=== PATIENT | male | born 1975 | race Caucasian/White ===

== ENCOUNTER 2023-01-10 13:33 | Inpatient (IN) ==
[2023-01-10] MEDS ORDERED: cefTRIAXone SODIUM 2,000 MG/70 ML BAG IV STA (14:22)
--- NOTE | 2023-01-10 14:30 | Emergency Department Note ---
History of Present Illness General Chief complaint: Referred by Doctor Stated complaint: STAPH INFECTION, REF BY DOC Time Seen by Provider: 01/10/23 13:53 History of Present Illness Maximum Pain Intensity: 2 This 47-year-old male presents today with his mother, for evaluation of a large abscess on his posterior neck. The patient states his symptoms began with 2 pimples on the back of his neck. He squeezed them and thought they would go away. The area became more red and painful. He does not have a PCP. He found an Internet MD and sent pictures of the area for treatment. He was prescribed Bactrim 2 weeks ago and states he began feeling better. The area continued to drain significant pus. He is able to show me pictures. Last evening he states he pulled a large fibrous mass from the area and became concerned. He called his mother and she brought him to the ED. He states he normally does not see any doctors. 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 He is unsure of any fevers. No nausea or vomiting. He is worried that the infection is tracking towards his spine. He states the Internet MD recommended he have a CT scan of his neck to ensure there was no involvement of his spine or other structures. No other complaints. No prior history of similar abscess. Home Medications Medication Instructions Recorded Confirmed Type mupirocin 2 % topical ointment 1 applic topical TID 01/10/23 01/10/23 History acetaminophen 325 mg tablet 650 mg PO Q4H PRN pain #20 tabs 01/13/23 Rx insulin degludec 100 unit/mL (3 30 unit (0.3 mL) subcut DAILY #15 01/13/23 Rx mL) subcutaneous pen mL losartan 50 mg tablet 50 mg PO QAM 30 days #30 tabs 01/13/23 Rx metformin 500 mg tablet 500 mg PO BID #60 tabs 01/13/23 Rx pen needle, diabetic 32 gauge x #100 ea 01/13/23 Rx 5/32" sulfamethoxazole 800 1 tab PO BID 10 days #20 tabs 01/13/23 Rx mg-trimethoprim 160 mg tablet (Bactrim DS) Allergies Allergy/AdvReac Type Severity Reaction Status Date / Time No Known Allergies Allergy Verified 01/10/23 15:03 Past Med/Surg History Medical History Asthma HTN (hypertension) Kidney stone Prediabetes Surgical History No history of previous surgery Family History Other Hypertension Social History Smoking Status: Never smoker Hx Alcohol Use: No Hx Substance Use: No Preferred Language: Vincentian Communication Ability: Effective Plant Etiologist Required: No Beliefs That Will Affect Care: None Current Living Situation: Alone Feels Safe at Home: Yes Assistive Devices: None Review of Systems A total of 10 systems reviewed and were otherwise negative Physical Exam Vital Signs Vital Signs - 24 hr 01/10/23 13:41 Temperature 36.4 C L Temperature Source Temporal Artery Scan Pulse Rate 94 H Respiratory Rate 16 Respiratory Effort / Characteristics Non-Labored Respiratory Depth Normal Blood Pressure 199/114 H Blood Pressure Mean 142 Pulse Oximetry 98 Oxygen Delivery Method Room Air Sepsis Recent Fever Within 48 Hours No Sepsis New/Unexplained Change in Mental Status No Sepsis Action Taken by Nursing No Action Required General: Well-developed, well-nourished, middle-aged male, in no acute distress. Sitting on the bed. Alert and oriented. He has a large bandage present on his posterior neck. It is bleeding. Skin: Warm and dry with good turgor. No rashes. Patient has an extremely large erythemic area on his posterior neck. It is quite angry looking. It is approximately 9 inches in diameter. It extends onto the scalp. The central area has 3 visible openings that are draining bloody pus. No additional areas of involvement. HEENT: Normocephalic atraumatic. Eyes PERRLA, EOMI. No conjunctiva or scleral injection. Ears TMs intact bilaterally with good light reflexes. No erythema or bulging. No hemotympanum. Canals are patent. Nares patent bilaterally without turbinate enlargement. No significant drainage. No epistaxis. Oropharynx without erythema or exudate. Uvula midline, oral mucosa moist. No lesions present. Lymphatics are palpated without anterior chain enlargement or tenderness. There is posterior chain enlargement and tenderness. Heart: Heart RRR. No MGR. Peripheral pulses are 2+. Lungs: Lungs are clear to auscultation. No crackles rhonchi or wheezing. Good air movement. The patient is able to take a deep breath. Abdomen: Abdomen was inspected, auscultated, and palpated. Bowel sounds present x 4. Soft, nontender to palpation. No hepato-splenomegaly. No masses noted. No rebound. Umbilical hernia is present. Musculoskeletal: Gross motor function of the upper and lower extremities is intact and unremarkable. He has intact motor function of his neck. Good rotation as well as lateral flexion. There is some restriction in forward flexion and extension secondary to discomfort. Neurologic: Cranial nerves II through XII are intact. Gross sensation is intact across the upper extremities by soft touch. Procedures Free Text Procedures Informed oral consent was obtained for irrigation and exploration of his neck abscess. Risks and benefits were discussed. Patient was placed prone. The neck area was prepped with Betadine and draped with sterile towels. The wound was irrigated copiously using Betadine diluted with normal sterile saline under jet spray lavage. Approximately 120 mL of solution was used. Additional pus, clot, and subcu necrotic tissue was removed from the openings. It was then additionally decompressed using gentle pressure. Approximately 2 feet of half- inch gauze packing was placed in the abscess. Hemostasis was achieved. Course Administered Medications Discontinued Medications Acetaminophen (Acetaminophen 325 Mg Tab) 650 mg PO Q4H PRN PRN Reason: pain/fever Stop: 02/09/23 19:34 Last Admin: 01/12/23 20:50 Dose: 650 mg Documented By: Admin: 01/11/23 22:26 Dose: 650 mg Documented By: Admin: 01/11/23 08:34 Dose: 650 mg Documented By: AALIYAH Bacitracin (Bacitracin Oint 15 Gm Tube) Confirm Administered Dose 45 appln .ROUTE .STK-MED ONE Stop: 01/11/23 07:12 Last Admin: 01/11/23 11:10 Dose: 45 appln Documented By: JAYLAN Bupivacaine HCl (Bupivacaine 0.5 % 5 Mg/1 Ml Mpf 30ml Vial) Confirm Administered Dose 30 ml .ROUTE .STK-MED ONE Stop: 01/11/23 07:12 Last Admin: 01/11/23 11:11 Dose: 20 ml Documented By: JAYLAN Clonidine HCl (Clonidine Hcl 0.1 Mg Tab) 0.1 mg PO Q6H PRN PRN Reason: Hypertension Stop: 02/10/23 20:28 Last Admin: 01/11/23 20:47 Dose: 0.1 mg Documented By: TANESHA Enoxaparin Sodium (Enoxaparin Inj 40 Mg/0.4 Ml Syr) 40 mg SQ HS JULISA Stop: 02/09/23 20:59 Last Admin: 01/10/23 21:06 Dose: Not Given Documented By: RICHIE Fentanyl Citrate (Fentanyl Citrate 100 Mcg/2 Ml Vial) 25 mcg IV Q5M PRN PRN Reason: PACU Use Only-Pain Stop: 01/11/23 19:38 Last Admin: 01/11/23 12:04 Dose: 25 mcg Documented By: Admin: 01/11/23 11:59 Dose: 25 mcg Documented By: Admin: 01/11/23 11:54 Dose: 25 mcg Documented By: Admin: 01/11/23 11:49 Dose: 25 mcg Documented By: JERRY Fentanyl Citrate (Fentanyl Citrate 100 Mcg/2 Ml Vial) Confirm Administered Dose 100 mcg .ROUTE .STK-MED ONE Stop: 01/11/23 11:49 Last Admin: 01/11/23 12:48 Dose: Not Given Documented By: AALIYAH Hydralazine HCl (Hydralazine Hcl 20 Mg/Ml Vial) 5 mg IV NOW ONE Stop: 01/10/23 17:26 Last Admin: 01/10/23 22:25 Dose: 5 mg Documented By: RICHIE Hydromorphone HCl (Hydromorphone Inj 0.5 Mg/0.5 Ml Syr) 0.5 mg IV Q6H PRN PRN Reason: Pain Stop: 01/25/23 12:32 Last Admin: 01/13/23 09:45 Dose: 0.5 mg Documented By: Admin: 01/11/23 15:43 Dose: 0.5 mg Documented By: AALIYAH Ceftriaxone Sodium (Rocephin) 2,000 mg in 70 mls @ 140 mls/hr IV NOW STA Stop: 01/10/23 14:51 Last Infusion: 01/10/23 16:19 Dose: 0 mls/hr Documented By: Admin: 01/10/23 15:04 Dose: 140 mls/hr Documented By: AMANDA Ceftriaxone Sodium 2,000 mg/ (Dextrose) 70 mls @ 100 mls/hr IV Q24H JULISA; Protocol Stop: 01/13/23 14:59 Last Infusion: 01/12/23 16:31 Dose: 0 mls/hr Documented By: [facility] Admin: 01/12/23 15:20 Dose: 100 mls/hr Documented By: [facility] Infusion: 01/11/23 16:41 Dose: 0 mls/hr Documented By: [facility] Admin: 01/11/23 15:14 Dose: 100 mls/hr Documented By: [facility] Vancomycin HCl 2,250 mg/ (Sodium Chloride) 545 mls @ 200 mls/hr IV ONE ONE; Protocol Stop: 01/10/23 22:43 Last Infusion: 01/11/23 00:03 Dose: 0 mls/hr Documented By: [facility] Admin: 01/10/23 21:06 Dose: 200 mls/hr Documented By: [facility] Vancomycin HCl 1,500 mg/ (Sodium Chloride) 530 mls @ 200 mls/hr IV Q12H JULISA; Protocol Stop: 01/17/23 09:59 Last Infusion: 01/12/23 01:13 Dose: 0 mls/hr Documented By: Admin: 01/11/23 21:52 Dose: 200 mls/hr Documented By: Infusion: 01/11/23 15:14 Dose: 0 mls/hr Documented By: [facility] Infusion: 01/11/23 12:45 Dose: 200 mls/hr Documented By: [facility] Infusion: 01/11/23 12:30 Dose: 0 mls/hr Documented By: [facility] Admin: 01/11/23 10:36 Dose: 200 mls/hr Documented By: RUBI Lactated Ringer's (Lr) 1,000 mls @ 80 mls/hr IV .[id number] JULISA Stop: 02/10/23 05:29 Last Infusion: 01/12/23 09:35 Dose: 0 mls/hr Documented By: [facility] Admin: 01/11/23 22:28 Dose: 80 mls/hr Documented By: Infusion: 01/11/23 22:28 Dose: 80 mls/hr Documented By: Infusion: 01/11/23 16:30 Dose: 80 mls/hr Documented By: [facility] Infusion: 01/11/23 15:15 Dose: 0 mls/hr Documented By: [facility] Infusion: 01/11/23 12:45 Dose: 80 mls/hr Documented By: Infusion: 01/11/23 10:00 Dose: 0 mls/hr Documented By: Admin: 01/11/23 05:58 Dose: 80 mls/hr Documented By: RICHIE Insulin Aspart (Insulin Aspart Per Unit) 0 units SC Q6 [facility] Stop: 02/10/23 07:59 Last Admin: 01/11/23 18:24 Dose: 15 units Documented By: AALIYAH Co-signed By: REN Admin: 01/11/23 14:02 Dose: Not Given Documented By: Admin: 01/11/23 08:44 Dose: Not Given Documented By: Admin: 01/11/23 07:37 Dose: 9 units Documented By: AALIYAH Co-signed By: DORON Insulin Aspart (Insulin Aspart Per Unit) 0 units SC 0000,0400 [facility] Stop: 01/12/23 04:01 Last Admin: 01/12/23 05:09 Dose: Not Given Documented By: TANESHA Co-signed By: RAAM Admin: 01/12/23 01:13 Dose: Not Given Documented By: TANESHA Co-signed By: NEERAJ Insulin Aspart (Insulin Aspart Per Unit) 0 units SC ACHS [facility] Stop: 02/10/23 20:59 Last Admin: 01/13/23 08:28 Dose: 11 units Documented By: AALIYAH Co-signed By: KALEIGH Admin: 01/12/23 20:42 Dose: 3 units Documented By: DODIE Co-signed By: TORI Admin: 01/12/23 17:19 Dose: 18 units Documented By: AALIYAH Co-signed By: BREA Admin: 01/12/23 12:09 Dose: 8 units Documented By: AALIYAH Co-signed By: BREA Admin: 01/12/23 08:30 Dose: 7 units Documented By: AALIYAH Co-signed By: BREA Admin: 01/11/23 21:52 Dose: 7 units Documented By: TANESHA Co-signed By: RAMA Insulin Glargine (Lantus Per Unit Charge) 10 units SQ 0800 [facility] Stop: 01/11/23 12:00 Last Admin: 01/11/23 08:19 Dose: 10 units Documented By: AALIYAH Co-signed By: REN Insulin Glargine (Lantus Per Unit Charge) 20 units SQ ONE ONE; Protocol Stop: 01/11/23 20:16 Last Admin: 01/11/23 20:25 Dose: 20 units Documented By: MH Co-signed By: MCKENZIE Insulin Glargine (Lantus Per Unit Charge) 15 units SQ BID JULISA Stop: 02/11/23 08:59 Last Admin: 01/12/23 20:42 Dose: 15 units Documented By: DODIE Co-signed By: TORI Admin: 01/12/23 08:31 Dose: 15 units Documented By: AALIYAH Co-signed By: BREA Insulin Glargine (Lantus Per Unit Charge) 20 units SQ BID JULISA Stop: 02/12/23 08:59 Last Admin: 01/13/23 08:30 Dose: 20 units Documented By: AALIYAH Co-signed By: KALEIGH Ioversol (Optiray 350 100ml) 85 ml IV ONCE ONE Stop: 01/10/23 17:14 Last Admin: 01/10/23 17:14 Dose: 85 ml Documented By: PAGE Lidocaine HCl (Lidocaine 1% Local 20 Ml Vial) Confirm Administered Dose 1 ml .ROUTE .STK-MED ONE Stop: 01/11/23 07:12 Last Admin: 01/11/23 11:13 Dose: 7 ml Documented By: JAYLAN Losartan Potassium (Losartan Potassium 50 Mg Tab) 50 mg PO QAM [facility] Stop: 02/10/23 08:59 Last Admin: 01/13/23 10:03 Dose: 50 mg Documented By: Admin: 01/12/23 08:41 Dose: 50 mg Documented By: Admin: 01/11/23 08:45 Dose: Not Given Documented By: AALIYAH Metoprolol Tartrate (Metoprolol Tartrate 1 Mg/Ml Vial) 5 mg IV NOW STA Stop: 01/10/23 16:11 Last Admin: 01/10/23 17:30 Dose: Not Given Documented By: AMS(2) Miscellaneous Information (Vancomycin Consult Active) 1 each N/A UD PRN PRN Reason: Consult Stop: 02/09/23 20:59 Last Admin: 01/11/23 10:36 Dose: 1 each Documented By: RUBI Mupirocin (Mupirocin 2% Oint 22 Gm Tube) 1 appln TOP TID [facility] Stop: 02/10/23 13:59 Last Admin: 01/13/23 08:35 Dose: 1 appln Documented By: Admin: 01/12/23 20:38 Dose: Not Given Documented By: Admin: 01/12/23 13:56 Dose: 1 appln Documented By: Admin: 01/12/23 08:42 Dose: 1 appln Documented By: Admin: 01/11/23 20:34 Dose: Not Given Documented By: Admin: 01/11/23 15:31 Dose: 1 appln Documented By: AALIYAH Ondansetron HCl (Ondansetron Inj 2 Mg/Ml 2 Ml Vial) 4 mg IV ONCE PRN PRN Reason: PACU Use Only-Nausea/Vomiting Stop: 01/11/23 19:38 Last Admin: 01/11/23 11:44 Dose: 4 mg Documented By: JERRY Ondansetron HCl (Ondansetron Inj 2 Mg/Ml 2 Ml Vial) Confirm Administered Dose 4 mg .ROUTE .STK-MED ONE Stop: 01/11/23 11:44 Last Admin: 01/11/23 12:48 Dose: Not Given Documented By: AALIYAH Potassium Chloride (Potassium Chloride Crtab 20 Meq Tabcr) 40 meq PO NOW STA Stop: 01/12/23 07:42 Last Admin: 01/12/23 08:41 Dose: 40 meq Documented By: AALIYAH Potassium Chloride (Potassium Chloride 10 Meq Tabcr) 10 meq PO NOW STA Stop: 01/12/23 09:08 Last Admin: 01/12/23 09:40 Dose: 10 meq Documented By: AALIYAH Vancomycin HCl (Vancomycin Hcl 1000mg/20ml Vial) Confirm Administered Dose 50 mg .ROUTE .STK-MED ONE Stop: 01/11/23 10:40 Last Admin: 01/11/23 11:12 Dose: 50 mg Documented By: JAYLAN Medical Decision Making Differential Diagnosis Necrotizing fasciitis, MRSA infection, MSSA infection, skin abscess, retained foreign body, ingrown hair follicle Medical Records Attestation: I reviewed the patient's medical records. Home Medications Current Medication List: was personally reviewed by me Laboratory Data CBC obtained today shows a white count of 9.2. Mild anemia with an H&H of 13.5 and 40.8. Chemistry panel shows sodium of 132. Potassium 3.7. BUN of 7 and creatinine 0.76. His glucose is significantly elevated at 374. Mild bump in his alkaline phosphatase at 106. LFTs are relatively unremarkable. COVID test is negative. Wound culture was obtained. This was sent for Gram stain, and aerobic/anaerobic cultures. 01/13/23 05:49 01/13/23 05:49 Lab Results 01/10/23 01/10/23 01/10/23 Range/Units 14:54 15:50 16:00 WBC 9.20 (4.8-10.8) K/ul RBC 4.85 (4.70-6.10) M/uL Hgb 13.5 L (14.0-18.0) g/dl Hct 40.8 L (42.0-52.0) % MCV 84.1 (80.0-100.0) fL MCH 27.8 (25.0-34.0) pg MCHC 33.1 (32.0-36.0) g/dL RDW Std Deviation 38.5 (36.4-46.3) fL RDW Coeff of Gentry 12.5 (11.5-14.5) % Plt Count 398 (130-400) K/uL MPV 10.7 (9.4-12.4) fL Immature Gran % (Auto) 3.4 % Neut % (Auto) 64.6 % Lymph % (Auto) 21.5 % Gray % (Auto) 4.6 % Eos % (Auto) 4.7 % Baso % (Auto) 1.2 % Neut # (Auto) 5.95 (1.40-6.50) K/uL Lymph # (Auto) 1.98 (1.2-3.4) K/uL Gray # (Auto) 0.42 (0.11-0.59) K/uL Eos # (Auto) 0.43 (0-0.50) K/uL Baso # (Auto) 0.11 (0-0.2) K/uL Immature Gran # (Auto) 0.31 H (0.01-0.20) K/uL Sodium 132 L (136-145) mmol/L Potassium 3.7 (3.5-5.1) mmol/L Chloride 99 (98-107) mmol/L Carbon Dioxide 24 (21-32) mmol/L Anion Gap 9 (3-11) BUN 7 (6-23) mg/dl Creatinine 0.76 (0.6-1.4) mg/dl Est Cr Clr Drug Dosing Not Reportable Est GFR ( Amer) 126.8 ml/min Est GFR (Non-Af Amer) 109.4 ml/min BUN/Creatinine Ratio 9.2 L (10-20) Glucose 374 H* (70-99(Fasting)) mg/dl Calcium 8.7 (8.5-10.1) mg/dl Total Bilirubin 0.3 (0.2-1.0) mg/dl Direct Bilirubin 0.0 (0-0.2) mg/dl AST 47 H (13-39) U/L ALT 48 (7-52) U/L Alkaline Phosphatase 106 H (34-104) U/L Total Protein 7.3 (6.0-8.3) gm/dl Albumin 3.6 (3.4-5.0) gm/dl Globulin 3.7 (2.5-4.0) gm/dl Albumin/Globulin Ratio 1.0 (0.9-2) SARS-CoV-2, RNA, NAAT NEGATIVE (NEGATIVE) Imaging Data My Impression: Soft tissue CT scan imaging of the neck was obtained today. This was interpreted by me and read by radiology. It shows enlarged bilateral cervical and lymph nodes. There is an extensive infectious process in the posterior right mid to upper neck. Cellulitis is evident. Numerous small multiloculated fluid collections are present which extend to the underlying muscle. No visible penetration to the spine. Blood Pressure Blood Pressure Findings: Elevated blood pressure Blood Pressure Disposition: further management by hospitalist MDM Narrative Patient was evaluated in room A3. Conservative care measures were discussed. IV was established. Labs were obtained. He was given Rocephin [address] scan imaging of the neck was obtained. This showed additional abscesses remain. His neck was irrigated as stated above. Additional material was removed. He has significant hypertension and significant elevation of his glucose. I suspect he is diabetic, but due to his stubbornness, was not seeking medical care. 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 Obviously he is failing to take care of himself adequately. Admission was recommended. He and his mother are in agreement. Hospitalist service was contacted and did come to the ED to evaluate the patient. Please see that dictation for final management. He will likely need surgical intervention to decompress the rest of the abscess. The patient is aware. He remained stable while in the ED. Impression & Plan Abscess, Hypertensive urgency The patient and his mother were educated regarding today's findings. Admission was recommended. They are in agreement. Please see the hospitalist service note for final management. Discharge Plan Visit Data Chief Complaint: Referred by Doctor Stated Complaint: STAPH INFECTION, REF BY DOC ED Provider: Blaze Albright ED Midlevel Provider: Zaki Reis Discharge Problem: Abscess, Hypertensive urgency Patient Disposition: Admitted As Inpatient Discharge Instructions Interventions: ED Discharge Assessment Last Done: 01/10/23 18:10
[2023-01-10] MEDS ORDERED: METOPROLOL TARTRATE 1 MG/ML VIAL IV STA (16:10)
[2023-01-10 16:27] LABS: Alanine Aminotransferase 48 U/L (7-52); Albumin Level 3.6 gm/dl (3.4-5.0); Alkaline Phosphatase 106 U/L (34-104); Anion Gap 9 (3-11); Aspartate Aminotransferase 47 U/L (13-39); BUN Creatinine Ratio 9.2 (10-20); Bilirubin,Total 0.3 mg/dl (0.2-1.0); Blood Urea Nitrogen 7 mg/dl (6-23); Calcium 8.7 mg/dl (8.5-10.1); Carbon Dioxide 24 mmol/L (21-32); Chloride 99 mmol/L (98-107); Est GFR (African American) 126.8 ml/min; Est GFR (Non-African American) 109.4 ml/min; Globulin 3.7 gm/dl (2.5-4.0); Glucose 374 mg/dl (70-99(Fasting)); Potassium 3.7 mmol/L (3.5-5.1); Sodium 132 mmol/L (136-145); Total Protein 7.3 gm/dl (6.0-8.3)
[2023-01-10 16:53] LABS: Basophils # (auto) 0.11 K/uL (0-0.2); Basophils % (auto) 1.2 %; Eosinophils # (auto) 0.43 K/uL (0-0.50); Eosinophils % (auto) 4.7 %; Hematocrit (blood only) 40.8 % (42.0-52.0); Hemoglobin 13.5 g/dl (14.0-18.0); Immature Granulocytes # (auto) 0.31 K/uL (0.01-0.20); Immature Granulocytes % (auto) 3.4 %; Lymphocytes # (auto) 1.98 K/uL (1.2-3.4); Lymphocytes % (auto) 21.5 %; Mean Corpuscular Hemoglobin 27.8 pg (25.0-34.0); Mean Corpuscular Hgb Conc 33.1 g/dL (32.0-36.0); Mean Corpuscular Volume 84.1 fL (80.0-100.0); Mean Platelet Volume 10.7 fL (9.4-12.4); Monocytes # (auto) 0.42 K/uL (0.11-0.59); Monocytes % (auto) 4.6 %; Neutrophils # (auto) 5.95 K/uL (1.40-6.50); Neutrophils % (auto) 64.6 %; Platelet Count 398 K/uL (130-400); RDW Coefficient of Variation 12.5 % (11.5-14.5); RDW Standard Deviation 38.5 fL (36.4-46.3); Red Blood Count 4.85 M/uL (4.70-6.10)
[2023-01-10] MEDS ORDERED: OPTIRAY 350 100ml IV ONE (17:13)
[2023-01-10] MEDS ORDERED: hydrALAZINE HCL 20 MG/ML VIAL IV ONE (17:25)
--- NOTE | 2023-01-10 17:30 | History & Physical Report ---
Date of Service January 10, 2023 Assessment & Plan (1) Abscess: (2) Hypertensive urgency: Plan Scalp skin abscess: -s/p I&D & packing in the ER -will start pt on ceftriaxone and vanc (due to the nature of the presentation will cover for MRSA) -CT neck ordered -Wound culture sent -will get surgery eval HTN urgency: -pt does not take any medication for his HTN --- agree to take losartan: started pt on 50mg daily -given Hydralazine 5mg IV once - admit to tele Prediabetes: -will get A1C and Lipid panel - will repeat CMP AM Diet: heart healthy DVT PPx: Lovenox Code Status:FULL CODE Emergency Contact:mother Gail [phone] History of Present Illness Chief Complaint: abscess Primary Care Provider: NO PCP Pt is a 47 y/o with hx of HTN (non complaint with meds), prediabetes, Asthma, hx of kidney stone came to the ER with worsening posterior scalp skin abscess. Per pt it started 2 weeks ago and has been having discharge (pus) and abt 10 days ago started taking Bactrim. His feverish feeling and chills improved with Bactrim but yesterday he started to bleed more with pus discharge therefore he came to the ER. Denied any acute fever, abd pain, N/V, dizziness. He does not take any medication at this time. He did not like his HTN meds (could not recall the name) Allergies Allergy/AdvReac Type Severity Reaction Status Date / Time No Known Allergies Allergy Verified 01/10/23 15:03 Home Medications Medication Instructions Recorded Confirmed Type mupirocin 2 % topical ointment 1 applic topical TID 01/10/23 01/10/23 History sulfamethoxazole 800 1 tab PO BID 01/10/23 01/10/23 History mg-trimethoprim 160 mg tablet (Bactrim DS) Past Med/Surg History Medical History (Updated 01/10/23 @ 17:30 by Mynor Friedman MD) Asthma HTN (hypertension) Kidney stone Prediabetes Surgical History (Updated 01/10/23 @ 17:28 by Mynor Friedman MD) No history of previous surgery Family History (Updated 01/10/23 @ 17:28 by Mynor Friedman MD) Other Hypertension Social History Smoking Status: Never smoker Preferred Language: Zimbabwean Feels Safe at Home: Yes Review of Systems Review of Systems: At least 10 Review of systems were reviewed and all negative except as indicated in HPI Physical Exam Physical Exam: General:. NAD, well developed, well nourished, average body habitus HEENT:.posterior scalp erythema with swelling, open abscess with packing in place, TTP, Normal Conjunctiva, EOMI, Sclera is non-icteric Lungs:. No signs of respiratory distress, CTA, no wheezing or crackles Heart:. Normal S1, S2, no murmur Abdominal:.reducible umbilical hernia, ND, Soft, NT MSK:. No deformities of UE and LE, No leg edema Psych:. AAOx3, normal affect Results & Data Results & Data Vital Signs (Past 12 Hours) Vital Signs Temp Pulse Pulse Resp BP BP Pulse Ox 01/10/23 16:28 77 16 157/102 H 96 01/10/23 16:10 87 01/10/23 15:06 16 184/109 H 96 01/10/23 13:41 36.4 C L 94 H 16 199/114 H 98 O2 Del Method 01/10/23 16:28 Room Air 01/10/23 16:10 01/10/23 15:06 Room Air 01/10/23 13:41 Room Air Laboratory Results Short CBC 01/10/23 Range/Units 16:00 WBC 9.20 (4.8-10.8) K/ul Hgb 13.5 L (14.0-18.0) g/dl Hct 40.8 L (42.0-52.0) % Plt Count 398 (130-400) K/uL BMP 01/10/23 15:50 Sodium 132 L Potassium 3.7 Chloride 99 Carbon Dioxide 24 BUN 7 Creatinine 0.76 Glucose 374 H* Calcium 8.7 Liver Function 01/10/23 Range/Units 15:50 Total Bilirubin 0.3 (0.2-1.0) mg/dl Direct Bilirubin 0.0 (0-0.2) mg/dl AST 47 H (13-39) U/L ALT 48 (7-52) U/L Alkaline Phosphatase 106 H (34-104) U/L Albumin 3.6 (3.4-5.0) gm/dl Code Status & VTE Plan VTE Prophylaxis Plan VTE Prophylaxis will be ordered: Yes
--- NOTE | 2023-01-10 17:50 | CT Scan Report ---
CT OF THE NECK WITH IV CONTRAST CLINICAL HISTORY: very large posterior abscess, r/o additional pocket COMPARISON STUDY: No previous studies for comparison. TECHNIQUE: Following IV administration of 85 mL of Optiray, helical axial images of the neck were ob tained. Sagittal and coronal reconstructions were viewed. Automated exposure control was utilized f or the study. A dose lowering technique was utilized adhering to the principles of ALARA. CT DOSE: 676.62 mGy.cm FINDINGS: Visualized portions of the intracranial contents are unremarkable. Major vasculature of th e neck is patent. Numerous mildly enlarged bilateral cervical lymph nodes are likely reactive. Note i s made of an extensive infectious process of the posterior right mid to upper neck. There is associat ed skin thickening consistent with cellulitis. Skin defect with subcutaneous gas is noted suggestive of recent drainage. Note is made of numerous small multiloculated rim-enhancing fluid collections whi ch extend to the underlying muscle. Many of these may communicate. In aggregate, these collections me asure 7 x 7 x 2.3 cm. Visualized portions of the lung apices are unremarkable. The parotid and subman dibular glands are normal. The epiglottis is normal. IMPRESSION: 1. Extensive infectious process of the right posterior neck with findings suggestive of recent absces s drainage. Residual numerous clustered small multiloculated rim-enhancing fluid collections that ext end to the underlying musculature. Many of these may communicate. In aggregate, these collections wallace sure 7 x 7 x 2.3 cm in extent. 2. Numerous mildly enlarged bilateral cervical lymph nodes which are likely reactive. ACT 112: Negative or not required by law. Electronically signed by: Ermias Haro M.D. 01/10/2023 5:47 PM
[2023-01-10] MEDS ORDERED: VANCOMYCIN HCL 2,250 MG in SODIUM CHLORIDE 0.9% 500 ML IV ONE (20:00)
--- NOTE | 2023-01-10 20:57 | Pharmacy Report ---
Pharmacy PK ABX Note - Date of Service January 10, 2023 - Assessment and Plan Assessment 47 year old M receiving IV Vancomycin and Ceftriaxone for treatment of scalp abscess; failed outpatient Bactrim Day # 1 of antimicrobial therapy. Plan Vancomycin * Loading dose: 2250 mg (~23mg/kg) IV x 1 * Maintenance dose: 1500 mg IV every 12 hours * Regimen is predicted to achieve target AUC/RAHEEM of 400-600 mg/L.hr * Trough level ordered for: 01/12/23 Pharmacy will continue to follow and will adjust dose/frequency as necessary. Thank you. Pharmacy has transitioned to AUC monitoring for vancomycin. AUC/RAHEEM is the preferred PK/PD target and is associated with decreased risk of nephrotoxicity compared to traditional trough targets.
[2023-01-10] MEDS ORDERED: VANCOMYCIN CONSULT ACTIVE PRN (21:00)
[2023-01-10] MEDS ORDERED: ENOXAPARIN INJ 40 MG/0.4 ML SYR SQ SCH (21:00)
--- NOTE | 2023-01-10 21:20 | Surgery Consultation ---
Date of Consultation January 10, 2023 Assessment & Plan (1) Abscess: pt is a 47 year-old male who was admitted to hospital for abscess on back of neck/scalp, IMP: abscess on back of neck/scalp plan, base on H/P, labs and Ct scan finding, I recommend to do I/D abscess on back of neck/scalp, D/W benefits, risks and alternatives of the surgery, the risks - infection, bleeding, scar, pain, pt understood, he agreed with surgery, he signed informed consent, I answered all questions, base on pt had dinner, the surgery will do on morning, NPO after middle night, hold lovenox, continue iv antibiotic, History of Present Illness Reason for Consultation: abscess on back of neck/scalp Requesting Physician: Mynor Friedman MD Attending Physician: Mynor Friedman MD History of Present Illness Chief Complaint: abscess on back of neck/scalp Primary Care Provider: NO PCP Pt is a 47 y/o with hx of HTN (non complaint with meds), prediabetes, Asthma, hx of kidney stone came to the ER with worsening posterior scalp skin abscess. Per pt it started 2 weeks ago and has been having discharge (pus) and abt 10 days ago started taking Bactrim. His feverish feeling and chills improved with Bactrim but yesterday he started to bleed more with pus discharge therefore he came to the ER. Denied any acute fever, abd pain, N/V, dizziness. He does not take any medication at this time. He did not like his HTN meds (could not recall the name) I ( Krystal Gray MD ) got a call for consult abscess on back of neck/scalp. I reviewed pt's H/P labs, and CT scan with pt. some drainage from abscess, small opening, pt just have a dinner 10 minutes ago, Allergies Allergy/AdvReac Type Severity Reaction Status Date / Time No Known Allergies Allergy Verified 01/10/23 15:03 Home Medications Medication Instructions Recorded Confirmed Type mupirocin 2 % topical ointment 1 applic topical TID 01/10/23 01/10/23 History sulfamethoxazole 800 1 tab PO BID 01/10/23 01/10/23 History mg-trimethoprim 160 mg tablet (Bactrim DS) Past Med/Surg History Medical History(Updated 01/10/23 @ 17:30 by Mynor Friedman MD) Asthma HTN (hypertension) Kidney stone Prediabetes Surgical History(Updated 01/10/23 @ 17:28 by Mynor Friedman MD) No history of previous surgery Family History(Updated 01/10/23 @ 17:28 by Mynor Friedman MD) Other Hypertension Social History Smoking Status: Never smoker Preferred Language: Irish Feels Safe at Home: Yes Review of Systems Review of Systems: At least 10 Review of systems were reviewed and all negative except as indicated in HPI Allergies Allergy/AdvReac Type Severity Reaction Status Date / Time No Known Allergies Allergy Verified 01/10/23 15:03 Home Medications Medication Instructions Recorded Confirmed Type mupirocin 2 % topical ointment 1 applic topical TID 01/10/23 01/10/23 History sulfamethoxazole 800 1 tab PO BID 01/10/23 01/10/23 History mg-trimethoprim 160 mg tablet (Bactrim DS) Patient History Medical History (Updated 01/10/23 @ 17:30 by Mynor Friedman MD) Asthma HTN (hypertension) Kidney stone Prediabetes Surgical History (Updated 01/10/23 @ 17:28 by Mynor Friedman MD) No history of previous surgery Family History (Updated 01/10/23 @ 17:28 by Mynor Friedman MD) Other Hypertension Social History Smoking Status: Never smoker Preferred Language: Irish Feels Safe at Home: Yes Physical Exam Constitutional: WD/WN, vitals as above Eyes: PERRL, conjunctivae normal, anicteric sclerae Neck: a large abscess on back of neck/scalp, size 7x7cm, with redness tenderness, small opening, some pus drainage Respiratory: normal respiratory effort, lungs clear to auscultation Cardiovascular: RRR, no murmur, no edema Gastrointestinal (Abdomen): normal bowel sounds, soft, nontender, no hepatosplenomegaly Neurologic: patellar DTR's 2+ bilat, sensation intact Psychiatric: A+Ox3, euthymic affect Results & Data Vital Signs (Past 12 Hours) Vital Signs Temp Pulse Pulse Resp BP BP Pulse Ox 01/10/23 18:10 83 18 157/99 H 98 01/10/23 17:30 83 24 96 01/10/23 17:17 104 H 98 01/10/23 17:17 184/105 H 01/10/23 17:00 82 19 96 01/10/23 16:30 81 18 96 01/10/23 16:26 157/102 H 01/10/23 16:26 78 18 97 01/10/23 16:00 82 18 96 01/10/23 15:30 96 H 20 96 01/10/23 15:15 94 H 22 96 01/10/23 16:28 77 16 157/102 H 96 01/10/23 16:10 87 01/10/23 15:06 16 184/109 H 96 01/10/23 13:41 36.4 C L 94 H 16 199/114 H 98 O2 Del Method 01/10/23 18:10 Room Air 01/10/23 17:30 01/10/23 17:17 01/10/23 17:17 01/10/23 17:00 01/10/23 16:30 01/10/23 16:26 01/10/23 16:26 01/10/23 16:00 01/10/23 15:30 01/10/23 15:15 01/10/23 16:28 Room Air 01/10/23 16:10 01/10/23 15:06 Room Air 01/10/23 13:41 Room Air Laboratory Results Abnormal lab results 01/10/23 01/10/23 01/10/23 Range/Units 15:50 16:00 20:03 Hgb 13.5 L (14.0-18.0) g/dl Hct 40.8 L (42.0-52.0) % Immature Gran # (Auto) 0.31 H (0.01-0.20) K/uL Sodium 132 L (136-145) mmol/L BUN/Creatinine Ratio 9.2 L (10-20) Glucose 374 H* (70-99(Fasting)) mg/dl POC Glucose 245 H (70-99) mg/dl AST 47 H (13-39) U/L Alkaline Phosphatase 106 H (34-104) U/L Diagnostic Findings CT OF THE NECK WITH IV CONTRAST CLINICAL HISTORY: very large posterior abscess, r/o additional pocket COMPARISON STUDY: No previous studies for comparison. TECHNIQUE: Following IV administration of 85 mL of Optiray, helical axial images of the neck were obtained. Sagittal and coronal reconstructions were v iewed. Automated exposure control was utilized for the study. A dose lowering technique was utilized adhering to the principles of ALARA. CT DOSE: 676.62 mGy.cm FINDINGS: Visualized portions of the intracranial contents are unremarkable. Major vasculature of the neck is patent. Numerous mildly enlarged bilateral cervical lymph nodes are likely reactive. Note is made of an extensive infectiou s process of the posterior right mid to upper neck. There is associated skin thickening consistent with cellulitis. Skin defect with subcutaneous gas is noted suggestive of recent drainage. Note is made of numerous small multiloculated rim-enhancing fluid collections which extend to the underlying muscle. Many of these may communicate. In aggregate, these collections measure 7 x 7 x 2.3 cm. Visualized portions of the lung apices are unremarkable. The parotid and submandibular glands are normal. The epiglottis is normal. IMPRESSION: 1. Extensive infectious process of the right posterior neck with findings suggestive of recent abscess drainage. Residual numerous clustered small multiloculated rim-enhancing fluid collections that extend to the underlying musculature. Many of these may communicate. In aggregate, these collections measure 7 x 7 x 2.3 cm in extent. 2. Numerous mildly enlarged bilateral cervical lymph nodes which are likely reactive.
[2023-01-11] MEDS: LACTATED RINGER'S 1,000 ML IV SCH ×2 (05:58→22:28)
[2023-01-11] MEDS ORDERED: ePHEDrine sulfate 50 MG/ML AMP IV PRN ×2 (06:53→11:38)
[2023-01-11] MEDS ORDERED: ATROPINE SULFATE 0.1 MG/ML 10ML SYR IV PRN ×2 (06:53→11:38)
--- NOTE | 2023-01-11 06:53 | Anesthesiology Consultation ---
Date of Service January 11, 2023 Assessment & Plan Chart Review Chart Review: Acceptable Risk for Surgery and Patient NOT seen in Pre Admission Testing Consults Requested none ASA ASA3 Proposed Anesthesia Anesthesia Type: General History Surgery Operation Date: 01/11/23 09:00 Proposed Procedures p Incision and Drainage of Posterior Neck Abscess - Krystal Gray MD Height/Weight Height: 6 ft Weight: 97.4 kg Allergies Allergy/AdvReac Type Severity Reaction Status Date / Time No Known Allergies Allergy Verified 01/10/23 15:03 Medications Home Medications Medication Instructions Recorded Confirmed Last Taken mupirocin 2 % topical ointment 1 applic topical TID 01/10/23 01/10/23 Unknown sulfamethoxazole 800 1 tab PO BID 01/10/23 01/10/23 01/10/23 mg-trimethoprim 160 mg tablet (Bactrim DS) Active Medications Generic Name Dose Route Start Last Admin Trade Name Freq PRN Reason Stop Dose Admin Lactated Ringer's 1,000 mls @ 80 mls/hr 01/11/23 05:30 01/11/23 05:58 Lr IV 02/10/23 05:29 80 mls/hr .[id number] JULISA Administration Past Medical History Medical History Asthma HTN (hypertension) Kidney stone Prediabetes Exercise / Class Metabolic Activity II 4-5 Yardwork/Stairs/Walk up hill Past Family History Family History Other Hypertension Past Surgical History Surgical History No history of previous surgery Past Anesthesia History No Hx of Anesthesia Complications and No Family Hx of Anesthesia Complications History of PONV No Hx of PONV and No Hx of Motion Sickness Social History Smoking Status: Never smoker Hx Alcohol Use: No Hx Substance Use: No Physical Exam Vital Signs Last Vital Signs Temp 36.4 C L 01/11/23 03:01 Pulse 80 01/11/23 03:01 Resp 16 01/11/23 03:01 BP 139/87 01/11/23 03:01 Pulse Ox 96 01/11/23 03:01 O2 Del Method Room Air 01/11/23 03:01 Testing Laboratory Results 01/10/23 14:21 Gram Stain - Final Neck 01/10/23 20:03 POC Glucose 245 H
[2023-01-11 06:55] LABS: Basophils # (auto) 0.13 K/uL (0-0.2); Basophils % (auto) 1.4 %; Eosinophils # (auto) 0.52 K/uL (0-0.50); Eosinophils % (auto) 5.6 %; Hemoglobin 14.2 g/dl (14.0-18.0); Immature Granulocytes # (auto) 0.28 K/uL (0.01-0.20); Lymphocytes # (auto) 2.29 K/uL (1.2-3.4); Lymphocytes % (auto) 24.7 %; Mean Corpuscular Hemoglobin 27.9 pg (25.0-34.0); Mean Corpuscular Volume 84.5 fL (80.0-100.0); Mean Platelet Volume 10.5 fL (9.4-12.4); Monocytes # (auto) 0.43 K/uL (0.11-0.59); Monocytes % (auto) 4.6 %; Neutrophils # (auto) 5.61 K/uL (1.40-6.50); Neutrophils % (auto) 60.7 %; Platelet Count 355 K/uL (130-400); RDW Coefficient of Variation 12.6 % (11.5-14.5); RDW Standard Deviation 38.7 fL (36.4-46.3); Red Blood Count 5.09 M/uL (4.70-6.10); White Blood Count 9.26 K/ul (4.8-10.8)
[2023-01-11] MEDS ORDERED: BUPIVACAINE 0.5 % 5 MG/1 ML MPF 30ML VIAL ONE (07:11)
[2023-01-11] MEDS ORDERED: LIDOCAINE 1% LOCAL 20 ML VIAL ONE (07:11)
[2023-01-11] MEDS ORDERED: BACITRACIN OINT 15 GM TUBE ONE (07:11)
[2023-01-11 07:22] LABS: Albumin Globulin Ratio 1.1 (0.9-2); Albumin Level 3.4 gm/dl (3.4-5.0); BUN Creatinine Ratio 13.9 (10-20); Bilirubin,Total 0.5 mg/dl (0.2-1.0); Calcium 8.5 mg/dl (8.5-10.1); Chol HDL Ratio 6.3 (0-5); Creatinine Clr Calc Pharmacy 155.1 ml/min; Est GFR (African American) 129.7 ml/min; Est GFR (Non-African American) 111.9 ml/min; Globulin 3.2 gm/dl (2.5-4.0); Potassium 3.9 mmol/L (3.5-5.1); Total Protein 6.6 gm/dl (6.0-8.3)
[2023-01-11] MEDS ORDERED: GLUCOSE 40% GEL 15 GM TUBE PO PRN (07:26)
[2023-01-11] MEDS ORDERED: PHARMACY GLYCEMIC MGMT CONSULT PRN (07:26)
[2023-01-11] MEDS ORDERED: GLUCOSE 10 TAB/TUBE PO PRN (07:26)
[2023-01-11] MEDS ORDERED: GLUCAGON FOR INJ 1 MG VIAL SQ PRN (07:26)
[2023-01-11] MEDS ORDERED: DEXTROSE 50% 50 ML SYRINGE IV PRN (07:26)
[2023-01-11] MEDS ORDERED: CARBOHYDRATES FOR HYPOGLYCEMIA PO PRN (07:26)
[2023-01-11] MEDS: INSULIN ASPART PER UNIT CHARGE SC SCH ×5 (07:37→21:52)
[2023-01-11] MEDS ORDERED: LANTUS PER UNIT CHARGE SQ SCH ×2 (08:00→21:00)
[2023-01-11] MEDS: ACETAMINOPHEN 325 MG TAB PO PRN ×2 (08:34→22:26)
[2023-01-11] MEDS: LOSARTAN POTASSIUM 50 MG TAB PO SCH (08:45)
--- NOTE | 2023-01-11 10:03 | Hospitalist Progress Note ---
Date of Service January 11, 2023 Assessment & Plan (1) Abscess: (2) Hypertensive urgency: Plan Scalp skin abscess: CT neck noted extensive fluid collections on right posterior neck, aggregate measuring 7x 7x 2.3xm Plan for I&D this morning Will follow up wound culture from OR Continue ceftriaxone and vancomycin Get MRSA swab will start pt on ceftriaxone and vanc (due to the nature of the presentation will cover for MRSA) Hypertensive urgency: Pt does not take any medication for his HTN BP was 199/114 on presentation Started on losartan 50mg on admission. Continue for now BP better controlled today. Will monitor. May need additional agent History of Prediabetes Possible diabetes mellitus: Hemoglobin A1c pending Blood glucose 331 this morning Provided DM education. Need for lifestyle modification, diet, weight loss Start insulin sliding scale for now Diet: heart healthy carbohydrate controlled diet DVT PPx: Lovenox Code Status:FULL CODE Emergency Contact:mother Gail [phone] I spent a total of 55 minutes coordinating, documenting and providing care for this patient excluding time spent in performance of separately billed services Admission and Anticipated Discharge Date Admission Date: January 10, 2023 Subjective Patient seen and examined Reported tender swelling on back of the upper neck/scalp over the past week that had been draining pus. Had been on Bactrim for 10 days prior to presentation Reported some fever at home Denied any neck rigidity, headache, blurry vision Denied nausea, vomiting, anorexia, abd pain Denied dysuria, freq, urgency but noted polyuria recently Denied cough, chest pain, SOB Reports he was on antihypertensive some years ago but quit on his own Reports he was Prediabetes some years ago but lost some weight Denied illicit drug use/alcohol/smoking Reported h/o staph infection on back of neck some years ago in [place]. Stated he usually gets bumps/pimples on the back of the head that usually goes away Physical Exam Constitutional: + well hydrated; no acute distress Eyes: PERRL, conjunctivae normal, anicteric sclerae ENMT: external ear and nose normal, oropharynx normal Neck: Large tender swelling over upper neck/scalp draining purulent fluid Respiratory: normal respiratory effort, lungs clear to auscultation Cardiovascular: Rate/Rhythm: regular rate and regular rhythm S1 S2 Gastrointestinal (Abdomen): normal bowel sounds, soft, nontender, no hepatosplenomegaly Musculoskeletal: no cyanosis or clubbing, extremities motor strength 5/5 Neurologic: PERRL, EOMI, accommodation nl, no face palsy, no dysarthria Psychiatric: A+Ox3, euthymic affect Results & Data Results & Data Vital Signs (Past 12 Hours) Vital Signs Temp Pulse Pulse Resp BP Pulse Ox O2 Del Method 01/11/23 07:55 36.7 C 18 161/99 H 96 Room Air 01/11/23 03:01 36.4 C L 80 16 139/87 96 Room Air 01/10/23 22:56 36.9 C 84 16 163/89 H 96 Room Air 01/10/23 22:51 87 Laboratory Results Abnormal lab results 01/10/23 01/10/23 01/10/23 Range/Units 15:50 16:00 20:03 Hgb 13.5 L (14.0-18.0) g/dl Hct 40.8 L (42.0-52.0) % Eos # (Auto) (0-0.50) K/uL Immature Gran # (Auto) 0.31 H (0.01-0.20) K/uL Sodium 132 L (136-145) mmol/L BUN/Creatinine Ratio 9.2 L (10-20) Glucose 374 H* (70-99(Fasting)) mg/dl POC Glucose 245 H (70-99) mg/dl AST 47 H (13-39) U/L Alkaline Phosphatase 106 H (34-104) U/L Triglycerides (0-150) mg/dl Cholesterol (0-200) mg/dl VLDL Cholesterol, Calc (0-30) mg/dl Cholesterol/HDL Ratio (0-5) 01/11/23 01/11/23 01/11/23 Range/Units 06:28 06:28 07:41 Hgb (14.0-18.0) g/dl Hct (42.0-52.0) % Eos # (Auto) 0.52 H (0-0.50) K/uL Immature Gran # (Auto) 0.28 H (0.01-0.20) K/uL Sodium 135 L (136-145) mmol/L BUN/Creatinine Ratio (10-20) Glucose 331 H* (70-99(Fasting)) mg/dl POC Glucose 305 H* (70-99) mg/dl AST 43 H (13-39) U/L Alkaline Phosphatase (34-104) U/L Triglycerides 170 H (0-150) mg/dl Cholesterol 221 H (0-200) mg/dl VLDL Cholesterol, Calc 34 H (0-30) mg/dl Cholesterol/HDL Ratio 6.3 H (0-5) 01/11/23 01/11/23 01/11/23 Range/Units 10:14 11:47 12:51 Hgb (14.0-18.0) g/dl Hct (42.0-52.0) % Eos # (Auto) (0-0.50) K/uL Immature Gran # (Auto) (0.01-0.20) K/uL Sodium (136-145) mmol/L BUN/Creatinine Ratio (10-20) Glucose (70-99(Fasting)) mg/dl POC Glucose 226 H 237 H 283 H (70-99) mg/dl AST (13-39) U/L Alkaline Phosphatase (34-104) U/L Triglycerides (0-150) mg/dl Cholesterol (0-200) mg/dl VLDL Cholesterol, Calc (0-30) mg/dl Cholesterol/HDL Ratio (0-5)
--- NOTE | 2023-01-11 10:20 | Pharmacy Report ---
Pharmacy Glycemic Short Note 2 - Date of Service January 11, 2023 - Glycemic Short BSG Results (Last 24 hours): 01/10/23 01/10/23 01/11/23 15:50 20:03 06:28 Glucose 374 H* 331 H* POC Glucose 245 H 01/11/23 07:41 Glucose POC Glucose 305 H* OUTPATIENT ANTIDIABETIC REGIMEN: * None ASSESSMENT: * 47 y/o M admitted for scalp skin abscess and hypertensive urgency. Patient was not on any anti-diabetic meds at home per med history. * Patient had BSGs greater than 300 mg/dl on admission yesterday. Fasting BSG today was 331 mg/dl. HbA1c is currently pending. * Pharmacy consulted for glycemic management. Basal insulin initiated based on stress of 1 since patient is insulin naive. * HS basal dose scale added based on BSG * Novolog ACHS dosing based on stress between 2 and 3. * Patient is currently NPO for OR tomorrow. PLAN FOR INPATIENT GLYCEMIC CONTROL: * Basal insulin * Lantus 10 units SQ x1 this AM * Lantus 5-10 units SQ HS based on BSG * Bolus insulin * NovoLog per scale ACHS or Q6hrs while NPO * Goal Range: Low 110 mg/dL - High 140 mg/dL * Correction Factor: 20 mg/dL/unit * Nutritional / Prandial insulin per carb ratio of 1 unit per 7 grams CHO consumed
--- NOTE | 2023-01-11 10:21 | Communication Note ---
Date of Service: January 11, 2023 01/11/[id number] @ 77;infer. infarct,age?
[2023-01-11] MEDS ORDERED: PROPOFOL IV EMULSION 10 MG/ML 20 ML VIAL IV ONE (10:26)
[2023-01-11] MEDS ORDERED: fentaNYL citrate PF 100 MCG/2 ML VIAL ONE ×3 (10:27→11:48)
[2023-01-11] MEDS ORDERED: MIDAZOLAM HCL 1 MG/ML 2ML VIAL ONE (10:28)
--- NOTE | 2023-01-11 10:35 | Electrocardiogram Report ---
Test Reason : Blood Pressure : / mmHG Vent. Rate : 077 BPM Atrial Rate : 077 BPM P-R Int : 150 ms QRS Dur : 086 ms QT Int : 414 ms P-R-T Axes : 027 -29 -18 degrees QTc Int : 468 ms Normal sinus rhythm Borderline left axis deviation No previous ECGs available Confirmed by Mick Alvares ([id number]) on 01/11/2023 10:35:11 AM Referred By: REFERRED SELF Confirmed By:Yossi Alvares
[2023-01-11] MEDS: VANCOMYCIN HCL 1,500 MG in SODIUM CHLORIDE 0.9% 500 ML IV SCH ×2 (10:36→21:52)
[2023-01-11] MEDS ORDERED: VANCOMYCIN HCL 1000MG/20ML VIAL ONE (10:39)
--- NOTE | 2023-01-11 11:16 | History & Physical Bridge Note ---
Date of Service January 11, 2023 History & Physical Bridge Note I have examined the patient, reviewed the History & Physical and in the interval since the performance of the History & Physical I have noted the following changes of clinical significance: no changes noted
--- NOTE | 2023-01-11 11:19 | Post Operative Brief Note ---
Immediate Post Op Note v1 Date of Surgery January 11, 2023 Pre & Post Diagnosis Operation Date: 01/11/23 09:00 Pre-Op Diagnosis: large posterior Neck Abscess Post-Op Diagnosis: large posterior Neck Abscess I identified the patient and participated in the time-out.: Yes Procedure Operation Date: 01/11/23 09:00 Actual Procedures p Incision and Drainage of Posterior Neck Abscess - Krystal Gray MD Surgeon Krystal Gray MD Refrigeration Service Inspector certified surgical tech/first assistant Estimated Blood Loss 20 Findings Consistent with Post-Op Diagnosis large posterior neck abscess, size 10 x 10 cm, wound culture sent Fluids 500ml Drains Other (1/2 inch packing the wound) Complications none Disposition Accompanied Patient To Recovery: Yes
[2023-01-11] MEDS ORDERED: ONDANSETRON INJ 2 MG/ML 2 ML VIAL IV PRN (11:38)
[2023-01-11] MEDS ORDERED: FLUMAZENIL 0.1 MG/1 ML 10 ML VIAL IV PRN (11:38)
[2023-01-11] MEDS ORDERED: LABETALOL HCL IV 5 MG/ML 20ML IV PRN (11:38)
[2023-01-11] MEDS ORDERED: HYDROmorphone INJ 1 MG/ML SYRINGE IV PRN (11:38)
[2023-01-11] MEDS ORDERED: NALOXONE HCL 0.4 MG/1 ML VIAL/CARP IV PRN (11:38)
[2023-01-11] MEDS ORDERED: PROMETHAZINE HCL 12.5 MG in SODIUM CHLORIDE 0.9% 50 ML IV PRN (11:38)
[2023-01-11] MEDS ORDERED: ONDANSETRON INJ 2 MG/ML 2 ML VIAL ONE (11:43)
[2023-01-11] MEDS: fentaNYL citrate PF 100 MCG/2 ML VIAL IV PRN ×4 (11:49→12:04)
--- NOTE | 2023-01-11 11:55 | Operative Report (OR) ---
DATE OF PROCEDURE: 01/11/2023. PREOPERATIVE DIAGNOSIS: Posterior neck abscess. POSTOPERATIVE DIAGNOSIS: Posterior neck abscess. OPERATION: Incision and drainage of posterior neck abscess. SURGEON: Krystal Gray MD. ANESTHESIA: General. ESTIMATED BLOOD LOSS: About 20 mL FINDINGS: Large abscess on the posterior neck, abscess size about 10 x 10 cm. COMPLICATIONS: None. INDICATIONS FOR THE PROCEDURE: This is a 47-year-old gentleman who presented with posterior neck abs cess. The patient was admitted to the hospital last night and the patient had a CT scan diagnosis of posterior neck abscess. I recommended to do incision and drainage of posterior neck abscess. I did talk to the patient about the benefit, risk, alternate procedure. I indicated the risks may include , but not limited to, such as bleeding, infection, sepsis, scar, pain. The patient understands. He signed informed consent and I answered all questions. DETAILS OF PROCEDURE: After we identified the patient and verified the procedure, we brought in the patient to the OR and put the patient in the supine position on the OR table. The patient received 1 .5 grams of vancomycin IV for prophylactic antibiotic. The patient received general anesthesia witho ut difficulty. Then, we repositioned to the left-sided lateral position on the OR table and the chloe ent's back of the neck was prepped and draped in routine sterile fashion. After timeout, I injected the local anesthesia by using 1% lidocaine mixed with 0.5% Marcaine around the abscess. The patient already had a small hole drainage. At this moment, I used a #15 blade, made a 3 cm incision on the p osterior neck and there was some pus that came out immediately. We sent the wound culture x2. We cl eaned the abscess, multiple cavity. Once we cleaned the abscess cavity, I used 1 gram vancomycin plu s 1 liters normal saline and flushed the abscess. Hemostasis obtained. I used a half-inch Kerlix fo r packing the abscess. The abscess size is about 10 x 10 cm deep to subcutaneous layer. Once we pac ked, again hemostasis obtained, we put the dressing on. The patient tolerated the procedure well. A ll instrument, needle and sponge counts were correct x2 at the end of the case. The patient was cuevas sferred to recovery room in stable condition. After the procedure, I did talk to the patient about t he OR finding and procedure we did, the patient understands. Job ID: [id number]
[2023-01-11] MEDS ORDERED: oxyCODONE/ACETAMINOPHEN 5mg/325mg TAB PO PRN (12:33)
--- NOTE | 2023-01-11 12:50 | Anesthesiology Progress Note ---
Date of Service January 11, 2023 Anesthesia Post Procedure Vital Signs Vital Signs: Temp Pulse Pulse Pulse Resp BP BP 01/11/23 12:05 87 15 166/97 H 01/11/23 11:55 82 13 176/74 H 01/11/23 11:45 90 15 171/103 H 01/11/23 12:16 87 37 L 20 145/81 H 01/11/23 11:37 36.2 C L 101 H 16 168/117 H 01/11/23 05:48 78 01/11/23 07:55 36.7 C 18 161/99 H 01/11/23 03:01 36.4 C L 80 16 139/87 01/10/23 21:52 90 01/10/23 22:56 36.9 C 84 16 163/89 H 01/10/23 22:51 87 01/10/23 21:13 36.5 C 84 16 179/102 H 01/10/23 18:10 83 18 157/99 H 01/10/23 17:30 83 24 01/10/23 17:17 104 H 01/10/23 17:17 184/105 H 01/10/23 17:00 82 19 01/10/23 16:30 81 18 01/10/23 16:26 157/102 H 01/10/23 16:26 78 18 01/10/23 16:00 82 18 01/10/23 15:30 96 H 20 01/10/23 15:15 94 H 22 01/10/23 16:28 77 16 157/102 H 01/10/23 16:10 87 01/10/23 15:06 16 184/109 H 01/10/23 13:41 36.4 C L 94 H 16 199/114 H Pulse Ox O2 Del Method O2 Flow Rate 01/11/23 12:05 97 Room Air 01/11/23 11:55 94 Room Air 01/11/23 11:45 94 Room Air 01/11/23 12:16 95 Room Air 01/11/23 11:37 94 Oxymask 7 01/11/23 05:48 01/11/23 07:55 96 Room Air 01/11/23 03:01 96 Room Air 01/10/23 21:52 01/10/23 22:56 96 Room Air 01/10/23 22:51 01/10/23 21:13 95 Room Air 03/18/23 18:10 98 Room Air 01/10/23 17:30 96 01/10/23 17:17 98 01/10/23 17:17 01/10/23 17:00 96 01/10/23 16:30 96 01/10/23 16:26 01/10/23 16:26 97 01/10/23 16:00 96 01/10/23 15:30 96 01/10/23 15:15 96 01/10/23 16:28 96 Room Air 01/10/23 16:10 01/10/23 15:06 96 Room Air 01/10/23 13:41 98 Room Air Pain Intensity Posterior Neck: Pain Intensity: 4 Transfer of Care Handoff Completed per policy Notes Mental Status: alert / awake / arousable Patient Amnestic to Procedure: Yes Nausea / Vomiting: adequately controlled Pain: adequately controlled Airway Patency, RR, SpO2: stable & adequate BP & HR: stable & adequate Hydration State: stable & adequate Anesthetic Complications: no major complications apparent
[2023-01-11] MEDS: cefTRIAXone SODIUM 2,000 MG in DEXTROSE 5% 50 ML IV SCH (15:14)
[2023-01-11] MEDS: MUPIROCIN 2% OINT 22 GM TUBE TOP SCH ×2 (15:31→20:34)
[2023-01-11] MEDS: HYDROmorphone INJ 0.5 MG/0.5 ML SYR IV PRN (15:43)
[2023-01-11] MEDS ORDERED: LANTUS PER UNIT CHARGE SQ ONE (20:15)
[2023-01-11] MEDS ORDERED: cloNIDine HCL 0.1 MG TAB PO PRN (20:29)
[2023-01-11] MEDS ORDERED: Nursing to Pharmacy Communication SCH (20:45)
[2023-01-12] MEDS: INSULIN ASPART PER UNIT CHARGE SC SCH ×6 (01:13→20:42)
[2023-01-12 06:15] LABS: Albumin Globulin Ratio 1.1 (0.9-2); Albumin Level 3.1 gm/dl (3.4-5.0); BUN Creatinine Ratio 13.2 (10-20); Bilirubin,Total 0.4 mg/dl (0.2-1.0); Creatinine Clr Calc Pharmacy 146.8 ml/min; Est GFR (African American) 126.8 ml/min; Est GFR (Non-African American) 109.4 ml/min; Globulin 2.8 gm/dl (2.5-4.0); Potassium 3.3 mmol/L (3.5-5.1); Total Protein 5.9 gm/dl (6.0-8.3)
[2023-01-12 06:53] LABS: Basophils # (auto) 0.07 K/uL (0-0.2); Basophils % (auto) 0.6 %; Eosinophils # (auto) 0.35 K/uL (0-0.50); Eosinophils % (auto) 3.2 %; Hematocrit (blood only) 37.3 % (42.0-52.0); Hemoglobin 12.2 g/dl (14.0-18.0); Immature Granulocytes # (auto) 0.13 K/uL (0.01-0.20); Immature Granulocytes % (auto) 1.2 %; Lymphocytes # (auto) 2.34 K/uL (1.2-3.4); Lymphocytes % (auto) 21.1 %; Mean Corpuscular Hemoglobin 27.9 pg (25.0-34.0); Mean Corpuscular Hgb Conc 32.7 g/dL (32.0-36.0); Mean Corpuscular Volume 85.2 fL (80.0-100.0); Mean Platelet Volume 10.3 fL (9.4-12.4); Monocytes # (auto) 0.48 K/uL (0.11-0.59); Monocytes % (auto) 4.3 %; Neutrophils % (auto) 69.6 %; Platelet Count 348 K/uL (130-400); RDW Coefficient of Variation 12.8 % (11.5-14.5); RDW Standard Deviation 39.9 fL (36.4-46.3); Red Blood Count 4.38 M/uL (4.70-6.10); White Blood Count 11.07 K/ul (4.8-10.8)
[2023-01-12] MEDS ORDERED: POTASSIUM CHLORIDE CRTAB 20 MEQ TABCR PO STA (07:41)
[2023-01-12] MEDS: LANTUS PER UNIT CHARGE SQ SCH ×2 (08:31→20:42)
[2023-01-12] MEDS: LOSARTAN POTASSIUM 50 MG TAB PO SCH (08:41)
[2023-01-12] MEDS: MUPIROCIN 2% OINT 22 GM TUBE TOP SCH ×3 (08:42→20:38)
[2023-01-12] MEDS ORDERED: POTASSIUM CHLORIDE 10 MEQ TABCR PO STA (09:07)
[2023-01-12 09:20] LABS: Estimated Average Glucose 318 mg/dl; Hemoglobin A1C 12.7 % (4.5-5.6)
[2023-01-12] MEDS ORDERED: VANCOMYCIN LEVEL ONE (09:30)
--- NOTE | 2023-01-12 13:28 | Surgery Progress Note ---
Date of Service January 12, 2023 Assessment & Plan (1) Abscess: Plan: POD # 1 s/p I&D of posterior neck abscess , large measuring 10 x 10 cm afebrile, vss -postop pain controlled - culture with staphylococcus Plan: Doing well from surgical standpoint will need daily packing changes, would prefer [place] location if possible recommend oral Bactrim x 10 days Continue current medical management for diabetes education and control Follow-up surgical office in [address] Gray has seen and examined pt, agrees with above. Admission and Anticipated Discharge Date Admission Date: January 10, 2023 Subjective feeling much better, packing removed last night and replaced Dressing replaced last night due to drainage no fevers pain controlled Physical Exam Constitutional: WD/WN, vitals as above no acute distress and not ill appearing Neck: Inspection of posterior neck: dressing in place, clean and intact. Mild swelling of the right neck however no induration, erythema or fluctuance. Skin: no rashes, warm and dry Psychiatric: A+Ox3, euthymic affect Results & Data Vital Signs (Past 12 Hours) Vital Signs Temp Pulse Pulse Resp BP BP Pulse Ox 01/12/23 10:53 36.7 C 83 20 153/96 H 96 01/12/23 07:38 36.7 C 78 18 151/91 H 96 01/12/23 03:18 36.5 C 75 16 139/82 97 01/12/23 01:49 76 O2 Del Method 01/12/23 10:53 Room Air 01/12/23 07:38 Room Air 01/12/23 03:18 Room Air 01/12/23 01:49 Laboratory Results 01/12/23 01/12/23 01/12/23 Range/Units 11:31 07:24 05:31 WBC (4.8-10.8) K/ul RBC (4.70-6.10) M/uL Hgb (14.0-18.0) g/dl Hct (42.0-52.0) % MCV (80.0-100.0) fL MCH (25.0-34.0) pg MCHC (32.0-36.0) g/dL RDW Std Deviation (36.4-46.3) fL RDW Coeff of Gentry (11.5-14.5) % Plt Count (130-400) K/uL MPV (9.4-12.4) fL Immature Gran % (Auto) % Neut % (Auto) % Lymph % (Auto) % [place] % (Auto) % Eos % (Auto) % Baso % (Auto) % Neut # (Auto) (1.40-6.50) K/uL Lymph # (Auto) (1.2-3.4) K/uL [place] # (Auto) (0.11-0.59) K/uL Eos # (Auto) (0-0.50) K/uL Baso # (Auto) (0-0.2) K/uL Immature Gran # (Auto) (0.01-0.20) K/uL Sodium 140 (136-145) mmol/L Potassium 3.3 L (3.5-5.1) mmol/L Chloride 104 (98-107) mmol/L Carbon Dioxide 29 (21-32) mmol/L Anion Gap 7 (3-11) BUN 10 (6-23) mg/dl Creatinine 0.76 (0.6-1.4) mg/dl Est Cr Clr Drug Dosing 146.8 ml/min Est GFR ( Amer) 126.8 ml/min Est GFR (Non-Af Amer) 109.4 ml/min BUN/Creatinine Ratio 13.2 (10-20) Glucose 133 H (70-99(Fasting)) mg/dl POC Glucose 195 H 120 H (70-99) mg/dl Estimat Average Glucose mg/dl Hemoglobin A1c (4.5-5.6) % Calcium 8.0 L (8.5-10.1) mg/dl Total Bilirubin 0.4 (0.2-1.0) mg/dl AST 30 (13-39) U/L ALT 39 (7-52) U/L Alkaline Phosphatase 81 (34-104) U/L Total Protein 5.9 L (6.0-8.3) gm/dl Albumin 3.1 L (3.4-5.0) gm/dl Globulin 2.8 (2.5-4.0) gm/dl Albumin/Globulin Ratio 1.1 (0.9-2) Nasal Screen MRSA (PCR) (Negative) 01/12/23 01/12/23 01/12/23 Range/Units 05:31 04:55 00:39 WBC 11.07 H (4.8-10.8) K/ul RBC 4.38 L (4.70-6.10) M/uL Hgb 12.2 L (14.0-18.0) g/dl Hct 37.3 L (42.0-52.0) % MCV 85.2 (80.0-100.0) fL MCH 27.9 (25.0-34.0) pg MCHC 32.7 (32.0-36.0) g/dL RDW Std Deviation 39.9 (36.4-46.3) fL RDW Coeff of Gentry 12.8 (11.5-14.5) % Plt Count 348 (130-400) K/uL MPV 10.3 (9.4-12.4) fL Immature Gran % (Auto) 1.2 % Neut % (Auto) 69.6 % Lymph % (Auto) 21.1 % [place] % (Auto) 4.3 % Eos % (Auto) 3.2 % Baso % (Auto) 0.6 % Neut # (Auto) 7.70 H (1.40-6.50) K/uL Lymph # (Auto) 2.34 (1.2-3.4) K/uL [place] # (Auto) 0.48 (0.11-0.59) K/uL Eos # (Auto) 0.35 (0-0.50) K/uL Baso # (Auto) 0.07 (0-0.2) K/uL Immature Gran # (Auto) 0.13 (0.01-0.20) K/uL Sodium (136-145) mmol/L Potassium (3.5-5.1) mmol/L Chloride (98-107) mmol/L Carbon Dioxide (21-32) mmol/L Anion Gap (3-11) BUN (6-23) mg/dl Creatinine (0.6-1.4) mg/dl Est Cr Clr Drug Dosing ml/min Est GFR ( Amer) ml/min Est GFR (Non-Af Amer) ml/min BUN/Creatinine Ratio (10-20) Glucose (70-99(Fasting)) mg/dl POC Glucose 112 H 98 (70-99) mg/dl Estimat Average Glucose mg/dl Hemoglobin A1c (4.5-5.6) % Calcium (8.5-10.1) mg/dl Total Bilirubin (0.2-1.0) mg/dl AST (13-39) U/L ALT (7-52) U/L Alkaline Phosphatase (34-104) U/L Total Protein (6.0-8.3) gm/dl Albumin (3.4-5.0) gm/dl Globulin (2.5-4.0) gm/dl Albumin/Globulin Ratio (0.9-2) Nasal Screen MRSA (PCR) (Negative) 01/11/23 01/11/23 01/11/23 Range/Units 20:51 20:07 17:55 WBC (4.8-10.8) K/ul RBC (4.70-6.10) M/uL Hgb (14.0-18.0) g/dl Hct (42.0-52.0) % MCV (80.0-100.0) fL MCH (25.0-34.0) pg MCHC (32.0-36.0) g/dL RDW Std Deviation (36.4-46.3) fL RDW Coeff of Gentry (11.5-14.5) % Plt Count (130-400) K/uL MPV (9.4-12.4) fL Immature Gran % (Auto) % Neut % (Auto) % Lymph % (Auto) % [place] % (Auto) % Eos % (Auto) % Baso % (Auto) % Neut # (Auto) (1.40-6.50) K/uL Lymph # (Auto) (1.2-3.4) K/uL [place] # (Auto) (0.11-0.59) K/uL Eos # (Auto) (0-0.50) K/uL Baso # (Auto) (0-0.2) K/uL Immature Gran # (Auto) (0.01-0.20) K/uL Sodium (136-145) mmol/L Potassium (3.5-5.1) mmol/L Chloride (98-107) mmol/L Carbon Dioxide (21-32) mmol/L Anion Gap (3-11) BUN (6-23) mg/dl Creatinine (0.6-1.4) mg/dl Est Cr Clr Drug Dosing ml/min Est GFR ( Amer) ml/min Est GFR (Non-Af Amer) ml/min BUN/Creatinine Ratio (10-20) Glucose 463 H* (70-99(Fasting)) mg/dl POC Glucose 266 H 297 H (70-99) mg/dl Estimat Average Glucose mg/dl Hemoglobin A1c (4.5-5.6) % Calcium (8.5-10.1) mg/dl Total Bilirubin (0.2-1.0) mg/dl AST (13-39) U/L ALT (7-52) U/L Alkaline Phosphatase (34-104) U/L Total Protein (6.0-8.3) gm/dl Albumin (3.4-5.0) gm/dl Globulin (2.5-4.0) gm/dl Albumin/Globulin Ratio (0.9-2) Nasal Screen MRSA (PCR) (Negative) 01/11/23 01/11/23 01/11/23 Range/Units 16:30 16:29 15:55 WBC (4.8-10.8) K/ul RBC (4.70-6.10) M/uL Hgb (14.0-18.0) g/dl Hct (42.0-52.0) % MCV (80.0-100.0) fL MCH (25.0-34.0) pg MCHC (32.0-36.0) g/dL RDW Std Deviation (36.4-46.3) fL RDW Coeff of Gentry (11.5-14.5) % Plt Count (130-400) K/uL MPV (9.4-12.4) fL Immature Gran % (Auto) % Neut % (Auto) % Lymph % (Auto) % [place] % (Auto) % Eos % (Auto) % Baso % (Auto) % Neut # (Auto) (1.40-6.50) K/uL Lymph # (Auto) (1.2-3.4) K/uL [place] # (Auto) (0.11-0.59) K/uL Eos # (Auto) (0-0.50) K/uL Baso # (Auto) (0-0.2) K/uL Immature Gran # (Auto) (0.01-0.20) K/uL Sodium (136-145) mmol/L Potassium (3.5-5.1) mmol/L Chloride (98-107) mmol/L Carbon Dioxide (21-32) mmol/L Anion Gap (3-11) BUN (6-23) mg/dl Creatinine (0.6-1.4) mg/dl Est Cr Clr Drug Dosing ml/min Est GFR ( Amer) ml/min Est GFR (Non-Af Amer) ml/min BUN/Creatinine Ratio (10-20) Glucose (70-99(Fasting)) mg/dl POC Glucose 291 H 325 H* (70-99) mg/dl Estimat Average Glucose mg/dl Hemoglobin A1c (4.5-5.6) % Calcium (8.5-10.1) mg/dl Total Bilirubin (0.2-1.0) mg/dl AST (13-39) U/L ALT (7-52) U/L Alkaline Phosphatase (34-104) U/L Total Protein (6.0-8.3) gm/dl Albumin (3.4-5.0) gm/dl Globulin (2.5-4.0) gm/dl Albumin/Globulin Ratio (0.9-2) Nasal Screen MRSA (PCR) Negative (Negative) 01/11/23 Range/Units 06:28 WBC (4.8-10.8) K/ul RBC (4.70-6.10) M/uL Hgb (14.0-18.0) g/dl Hct (42.0-52.0) % MCV (80.0-100.0) fL MCH (25.0-34.0) pg MCHC (32.0-36.0) g/dL RDW Std Deviation (36.4-46.3) fL RDW Coeff of Gentry (11.5-14.5) % Plt Count (130-400) K/uL MPV (9.4-12.4) fL Immature Gran % (Auto) % Neut % (Auto) % Lymph % (Auto) % [place] % (Auto) % Eos % (Auto) % Baso % (Auto) % Neut # (Auto) (1.40-6.50) K/uL Lymph # (Auto) (1.2-3.4) K/uL [place] # (Auto) (0.11-0.59) K/uL Eos # (Auto) (0-0.50) K/uL Baso # (Auto) (0-0.2) K/uL Immature Gran # (Auto) (0.01-0.20) K/uL Sodium (136-145) mmol/L Potassium (3.5-5.1) mmol/L Chloride (98-107) mmol/L Carbon Dioxide (21-32) mmol/L Anion Gap (3-11) BUN (6-23) mg/dl Creatinine (0.6-1.4) mg/dl Est Cr Clr Drug Dosing ml/min Est GFR ( Amer) ml/min Est GFR (Non-Af Amer) ml/min BUN/Creatinine Ratio (10-20) Glucose (70-99(Fasting)) mg/dl POC Glucose (70-99) mg/dl Estimat Average Glucose 318 mg/dl Hemoglobin A1c 12.7 H (4.5-5.6) % Calcium (8.5-10.1) mg/dl Total Bilirubin (0.2-1.0) mg/dl AST (13-39) U/L ALT (7-52) U/L Alkaline Phosphatase (34-104) U/L Total Protein (6.0-8.3) gm/dl Albumin (3.4-5.0) gm/dl Globulin (2.5-4.0) gm/dl Albumin/Globulin Ratio (0.9-2) Nasal Screen MRSA (PCR) (Negative) Microbiology 01/11/23 11:01 Gram Stain - Final Neck Aerobic and Anaerobic Culture - Preliminary Staphylococcus species 01/11/23 11:01 Gram Stain - Final Neck Aerobic and Anaerobic Culture - Preliminary Staphylococcus species 01/10/23 14:21 Gram Stain - Final Neck Aerobic and Anaerobic Culture - Preliminary Staphylococcus aureus
[2023-01-12] MEDS: cefTRIAXone SODIUM 2,000 MG in DEXTROSE 5% 50 ML IV SCH ×2 (14:48→15:20)
--- NOTE | 2023-01-12 15:08 | Hospitalist Progress Note ---
Date of Service January 12, 2023 Assessment & Plan (1) Abscess: (2) Hypertensive urgency: Plan Scalp skin abscess: CT neck noted extensive fluid collections on right posterior neck, aggregate measuring 7x 7x 2.3xm S/p I&D on 01/11/23 Wound culture from 01/10/23 grew MSSA Stop vancomycin Continue ceftriaxone while inpatient. Plan to dc on bactrim per surg recommendation Needs to follow up with Surgeon outpatient Patient reports he wants a wound care center in [place]. Coordinator able to get wound care appt on 01/14/23 Hypertensive urgency: Pt does not take any medication for his HTN BP was 199/114 on presentation Started on losartan 50mg on admission. Will continue on discharge. Will monitor. May need additional meds Patient stated he is not a fan of many medications but agreed he will take the meds Will monitor. May need additional agent New diagnosis of diabetes mellitus: Hemoglobin A1c 12.7 Blood glucose 331 this morning Provided more DM education. Will need long acting insulin and metformin on dc Patient does not have insurance. Coordinator/CM working on getting patient resources. DM educator provided DM education as well. Diet: heart healthy carbohydrate controlled diet DVT PPx: Lovenox Code Status:FULL CODE Emergency Contact:mother Gail [phone] I spent a total of 50 minutes coordinating, documenting and providing care for this patient excluding time spent in performance of separately billed services Admission and Anticipated Discharge Date Admission Date: January 10, 2023 Subjective Patient seen and examined. Reports feeling better today. Reports surgical site pain is well controlled. Denied any fevers, chills Denied headache, neck stiffness, blurry vision Denied any nausea, vomiting, abdominal pain, diarrhea Denied dysuria, frequency urgency Denied cough, chest pain or shortness of breath Physical Exam Constitutional: + well hydrated; no acute distress Eyes: PERRL, conjunctivae normal, anicteric sclerae ENMT: external ear and nose normal, oropharynx normal Neck: Clean dressing/packing over posterior neck/lower scalp Respiratory: normal respiratory effort, lungs clear to auscultation Cardiovascular: Rate/Rhythm: regular rate and regular rhythm S1 S2 Gastrointestinal (Abdomen): normal bowel sounds, soft, nontender, no hepatosplenomegaly Musculoskeletal: no cyanosis or clubbing, extremities motor strength 5/5 Neurologic: PERRL, EOMI, accommodation nl, no face palsy, no dysarthria Psychiatric: A+Ox3, euthymic affect Results & Data Results & Data Vital Signs (Past 12 Hours) Vital Signs Temp Pulse Pulse Resp BP BP Pulse Ox 01/12/23 15:04 37.0 C 79 20 152/93 H 94 01/12/23 05:59 73 01/12/23 10:53 36.7 C 83 20 153/96 H 96 01/12/23 07:38 36.7 C 78 18 151/91 H 96 01/12/23 03:18 36.5 C 75 16 139/82 97 O2 Del Method 01/12/23 15:04 Room Air 01/12/23 05:59 01/12/23 10:53 Room Air 01/12/23 07:38 Room Air 01/12/23 03:18 Room Air Laboratory Results Abnormal lab results 01/11/23 01/11/23 01/11/23 Range/Units 06:28 16:29 16:30 WBC (4.8-10.8) K/ul RBC (4.70-6.10) M/uL Hgb (14.0-18.0) g/dl Hct (42.0-52.0) % Neut # (Auto) (1.40-6.50) K/uL Potassium (3.5-5.1) mmol/L Glucose (70-99(Fasting)) mg/dl POC Glucose 325 H* 291 H (70-99) mg/dl Hemoglobin A1c 12.7 H (4.5-5.6) % Calcium (8.5-10.1) mg/dl Total Protein (6.0-8.3) gm/dl Albumin (3.4-5.0) gm/dl 01/11/23 01/11/23 01/11/23 Range/Units 17:55 20:07 20:51 WBC (4.8-10.8) K/ul RBC (4.70-6.10) M/uL Hgb (14.0-18.0) g/dl Hct (42.0-52.0) % Neut # (Auto) (1.40-6.50) K/uL Potassium (3.5-5.1) mmol/L Glucose 463 H* (70-99(Fasting)) mg/dl POC Glucose 297 H 266 H (70-99) mg/dl Hemoglobin A1c (4.5-5.6) % Calcium (8.5-10.1) mg/dl Total Protein (6.0-8.3) gm/dl Albumin (3.4-5.0) gm/dl 01/12/23 01/12/23 01/12/23 Range/Units 04:55 05:31 05:31 WBC 11.07 H (4.8-10.8) K/ul RBC 4.38 L (4.70-6.10) M/uL Hgb 12.2 L (14.0-18.0) g/dl Hct 37.3 L (42.0-52.0) % Neut # (Auto) 7.70 H (1.40-6.50) K/uL Potassium 3.3 L (3.5-5.1) mmol/L Glucose 133 H (70-99(Fasting)) mg/dl POC Glucose 112 H (70-99) mg/dl Hemoglobin A1c (4.5-5.6) % Calcium 8.0 L (8.5-10.1) mg/dl Total Protein 5.9 L (6.0-8.3) gm/dl Albumin 3.1 L (3.4-5.0) gm/dl 01/12/23 01/12/23 Range/Units 07:24 11:31 WBC (4.8-10.8) K/ul RBC (4.70-6.10) M/uL Hgb (14.0-18.0) g/dl Hct (42.0-52.0) % Neut # (Auto) (1.40-6.50) K/uL Potassium (3.5-5.1) mmol/L Glucose (70-99(Fasting)) mg/dl POC Glucose 120 H 195 H (70-99) mg/dl Hemoglobin A1c (4.5-5.6) % Calcium (8.5-10.1) mg/dl Total Protein (6.0-8.3) gm/dl Albumin (3.4-5.0) gm/dl
[2023-01-12] MEDS: ACETAMINOPHEN 325 MG TAB PO PRN (20:50)
[2023-01-13 06:40] LABS: Hematocrit (blood only) 38.4 % (42.0-52.0); Hemoglobin 12.5 g/dl (14.0-18.0); Mean Corpuscular Hemoglobin 28.2 pg (25.0-34.0); Mean Corpuscular Hgb Conc 32.6 g/dL (32.0-36.0); Mean Corpuscular Volume 86.5 fL (80.0-100.0); Mean Platelet Volume 10.3 fL (9.4-12.4); Platelet Count 316 K/uL (130-400); RDW Coefficient of Variation 13.1 % (11.5-14.5); RDW Standard Deviation 40.8 fL (36.4-46.3); Red Blood Count 4.44 M/uL (4.70-6.10); White Blood Count 8.41 K/ul (4.8-10.8)
[2023-01-13 06:44] LABS: BUN Creatinine Ratio 13.6 (10-20); Calcium 8.6 mg/dl (8.5-10.1); Creatinine Clr Calc Pharmacy 143.6 ml/min; Est GFR (African American) 123.5 ml/min; Est GFR (Non-African American) 106.6 ml/min; Potassium 4.1 mmol/L (3.5-5.1)
[2023-01-13] MEDS: INSULIN ASPART PER UNIT CHARGE SC SCH (08:28)
[2023-01-13] MEDS: MUPIROCIN 2% OINT 22 GM TUBE TOP SCH (08:35)
[2023-01-13] MEDS ORDERED: LANTUS PER UNIT CHARGE SQ SCH ×2 (09:00→12:00)
[2023-01-13] MEDS: HYDROmorphone INJ 0.5 MG/0.5 ML SYR IV PRN (09:45)
[2023-01-13] MEDS: LOSARTAN POTASSIUM 50 MG TAB PO SCH (10:03)
--- NOTE | 2023-01-13 10:51 | Discharge Summary ---
Date of Service January 13, 2023 Admission HPI Per Admitting Provider Pt is a 47 y/o with hx of HTN (non complaint with meds), prediabetes, Asthma, hx of kidney stone came to the ER with worsening posterior scalp skin abscess. Per pt it started 2 weeks ago and has been having discharge (pus) and abt 10 days ago started taking Bactrim. His feverish feeling and chills improved with Bactrim but yesterday he started to bleed more with pus discharge therefore he came to the ER. Denied any acute fever, abd pain, N/V, dizziness. He does not take any medication at this time. He did not like his HTN meds (could not recall the name) Admission Exam Per Admitting Provider General:.NAD, well developed, well nourished, average body habitus HEENT:.posterior scalp erythema with swelling, open abscess with packing in place, TTP,Normal Conjunctiva, EOMI, Sclera is non-icteric Lungs:.No signs of respiratory distress, CTA, no wheezing or crackles Heart:.Normal S1, S2, no murmur Abdominal:.reducible umbilical hernia,ND, Soft, NT MSK:.No deformities of UE and LE, No leg edema Psych:.AAOx3, normal affect Principal Diagnosis Scalp/Upper neck abscess Newly diagnosed diabetes mellitus Hypertension Discharge Exam Constitutional + well hydrated and + obese; no acute distress Eyes PERRL, conjunctivae normal, anicteric sclerae ENMT external ear and nose normal, oropharynx normal Neck Clean dressing/packing over posterior neck/lower scalp Respiratory normal respiratory effort, lungs clear to auscultation Cardiovascular Rate/Rhythm: regular rate and regular rhythm S1 S2 Gastrointestinal (Abdomen) normal bowel sounds, soft, nontender, no hepatosplenomegaly Musculoskeletal no cyanosis or clubbing, extremities motor strength 5/5 Neurologic PERRL, EOMI, accommodation nl, no face palsy, no dysarthria Psychiatric A+Ox3, euthymic affect Discharge Data Allergies Allergy/AdvReac Type Severity Reaction Status Date / Time No Known Allergies Allergy Verified 01/10/23 15:03 Consultations 01/10/23 16:22 ED Decision to Admit Stat 01/10/23 19:35 Consult General Surgery Routine Procedures Performed Operation Date: 01/11/23 09:00 Actual Procedures p Incision and Drainage of Posterior Neck Abscess - Krystal Gray MD Ordered Studies 01/10/23 14:22 CT neck soft tissues [CT soft tissue neck w con] Stat Hospital Course (1) Abscess: (2) Hypertensive urgency: Plan Scalp skin abscess: CT neck noted extensive fluid collections on right posterior neck, aggregate measuring 7x 7x 2.3xm S/p I&D on 01/11/23 Wound culture from 01/10/23 grew MSSA Treated with IV antibiotics while inpatient Discharged on bactrim for 10 dadys per surg recommendation Needs to follow up with Surgeon outpatient Patient reports he wants a wound care center in [place]. Coordinator able to get wound care appt on 01/14/23 Hypertensive urgency: Pt does not take any medication for his HTN BP was 199/114 on presentation Started on losartan 50mg on admission. BP improved Discharge on losartan New diagnosis of diabetes mellitus: Hemoglobin A1c 12.7 Provided DM education. Patient does not have insurance. Coordinator/CM/ DM educator provided resources. I called his pharm yesterday and they have insulin degludec. Discharged on metformin 500mg bid, insulin degludec 30U daily DM educator will follow up with patient in a few days Patient already procured glucometer, strips and lancets Total Time Total Time Spent Total Time Spent (In Minutes): 50 Total Time Includes: Examination of the Patient, Discharge Planning, Medication Reconciliation and Communication With Other Providers Discharge Plan Discharge Items Patient Disposition: Home - Self-Care Reason For Visit: ABSCESS Discharge Diagnosis: Scalp/Upper neck abscess Newly diagnosed diabetes mellitus Hypertension Activity: Resume your previous activity Non-emergency contact: Primary Care Provider and Surgeon Call non-emergency contact if: you have any medication questions and your symptoms worsen Follow-up/Referrals: [facility] Wound Healing Services [Other] - 01/14/23 2:00 pm (Wound Center is located right next to [facility] hospital. If using GPS/Map wanda, type in "[address] The wound care center is a green brick building right next to the hospital, on the corner of [facility] and [address] [place] [address] in patient parking under covered parking, take the elevator to the first floor. The wound center is on the first floor. The wound center asks that you bring an insurance card, current list of medications, and to arrive on time- if you are 15 minutes late, they will reschedule you. ) Krystal Gray MD [Physician] - Manuel Brito DO [Outside Practitioners] - (Date & Time 01/19/2023 11:20 AM Provider Manuel Brito DO Department [facility] ) Diet: Carb Consistent or DM2 and Heart Healthy Addtl Attending Provider Instructions: Mr Jauregui. You came to the hospital complaining of neck and scalp mass with drainage. You were evaluated and noted to have scalp abscess for which you had incision and drainage. You need to follow up with Wound care clinic on 01/14/23. You need to follow up with the Surgery's office in 2 weeks. Please continue bactrim for 10 days. You were also started on losartan for hypertension. You were diagnosed with Diabetes mellitus. It is important you modify your lifestyle as we discussed with respect to weight loss, diet and exercise. You were started on insulin degludec 30 units once a day injection for now and metformin 500mg twice a day. These medicines may be adjusted over time as appropriate. Please check your blood glucose twice a day and keep a log of your home blood glucose. It is very important that you follow up with a Primary Doctor. It was a pleasure taking care of you. Pending Studies at Discharge: No Stand-Alone Forms: My [facility], Smoking Cessation Medications and DC Order Prescriptions: New metformin 500 mg tablet 500 mg PO BID Qty: 60 0RF (DME) pen needle, diabetic 32 gauge x 5/32" needle See Rx Instructions .Route Qty: 100 0RF Rx Instructions: As directed. Use with insulin pen once a day insulin degludec 100 unit/mL (3 mL) insulin pen 30 unit subcut DAILY Qty: 15 0RF losartan 50 mg Tablet 50 mg PO QAM 30 Days Qty: 30 0RF acetaminophen 325 mg Tablet 650 mg PO Q4H PRN (Reason: pain) Qty: 20 0RF Continued mupirocin 2 % Ointment 1 applic TOPICAL TID sulfamethoxazole-trimethoprim [Bactrim DS] 800-160 mg Tablet 1 tab PO BID 10 Days Qty: 20 0RF Rx Instructions: 10th day today Discharge Orders: Discharge Order (Routine); Ordered 01/13/23 Ordered By: Amelie Douglas Admission Data Admit Date/Time: 01/10/23 16:10 Attending Provider: Amelie Douglas I. Admit Provider: Mynor Friedman Primary Care Provider: PCP,NO Other Providers: Krystal Gray ; Mynor Friedman Other Interventions: Discharge Summary Assessment (RN) Last Done: 01/13/23 11:02
== END 2023-01-13 11:30 | disposition home or self-care (01) | DRG 603 ==
LOC: ED 13:33 → SUATTDRO 16:10 → 2N 16:10